=== PATIENT | male | born 1980 | race Caucasian/White ===

== ENCOUNTER 2022-02-16 13:00 | Emergency (ER) | payer SELFPAY ==
[~2022-02-16] VITALS: Ht 188 cm; Wt 113.4 kg
[2022-02-16 13:09] VITALS: BP_SYST 160
--- NOTE | 2022-02-16 13:20 | NUR ---
ER at bedside examining patient.
--- NOTE | 2022-02-16 13:20 | NUR ---
Patient to ER bed H1 to gown for evaluation. Side rails up.
[2022-02-16 13:45] VITALS: BP_SYST 158
[2022-02-16 13:59] LABS: WHITE BLOOD COUNT (AUTO) 6.2 K/uL (4.8-10.8)
[2022-02-16 14:04] LABS: HEMATOCRIT 40.8 % (36-54); HEMOGLOBIN 14.1 g/dL (14.0-18.0); MEAN CORPUSCULAR HEMOGLOBIN 29 pg (27-31); MEAN CORPUSCULAR HGB CONC 35 % (32-36); MEAN CORPUSCULAR VOLUME 85 fL (79.0-98.0); PLATELET COUNT (AUTO) 85 K/uL (130-430); RED BLOOD CELL COUNT(AUTO) 4.79 MIL/uL (4.2-6.2); RED CELL DISTRIBUTION WIDTH 13.4 % (9.0-15.0)
[2022-02-16 14:14] LABS: CALCIUM 8.7 mg/dL (8.4-11.0); CREATININE 1.05 mg/dL (0.55-1.30); POTASSIUM 3.5 mmol/L (3.5-5.1)
[2022-02-16 14:16] LABS: INR 1.1 (0.80-1.20); PROTHROMBIN TIME 10.8 SECS (9.5-12.5)
[2022-02-16 14:28] LABS: ALBUMIN 3.9 g/dL (3.4-4.8)
[2022-02-16 14:48] LABS: ATYPICAL LYMPHOCYTES % 2 % (0-0); BASOPHILS % (MANUAL) 0 % (0-2); EOSINOPHILS % (MANUAL) 3 % (0-7); LYMPHOCYTES % (MANUAL) 20 % (20-46); MONOCYTES % (MANUAL) 18 % (0-11)
--- NOTE | 2022-02-16 14:51 | NUR ---
Patient given written and verbal discharge instructions and verbalizes understanding. ER MD discussed with patient the results and treatment provided. Patient in stable condition. ID arm band removed. NO Rx given. Patient educated on pain management and to follow up with PMD. Pain Scale 0. Opportunity for questions provided and answered. Medication side effect fact sheet provided.
== END 2022-02-16 14:51 ==
LOC: SED 13:00
DX: K92.0 Hematemesis (principal)
CPT/HCPCS: 36415; 76376; 80053; 82150; 83605; 83690; 85007; 85027; 85610-TC; 85730-TC; 99284

== ENCOUNTER 2022-12-26 21:26 | Emergency (ER) | payer MEDICAID ==
[~2022-12-26] VITALS: Ht 188 cm; Wt 104.3 kg
[~2022-12-26 21:26] MED LIST: IBUP-1971 PO; LIDOINT TP; OXYC-128 PO
[2022-12-26 21:48] VITALS: BP_SYST 145
--- NOTE | 2022-12-26 21:48 | NUR ---
Triaged and placed patient back to the waiting room. No acute respiratory distress at this time. VSS. Informed patient to notify ED staff for any changes in condition or worsening of symptoms while waiting to be seen by a provider. Patient verbalized understanding.
--- NOTE | 2022-12-26 23:19 | NUR ---
Called out patient's name several times in the ER waiting room - no answer.
--- NOTE | 2022-12-26 23:36 | NUR ---
Called out patient's name several times in the ER waiting room - no answer.
--- NOTE | 2022-12-27 00:15 | NUR ---
Called out patient's name several times in the ER waiting room - no answer. Notified Dr. Ferreira that the patient LWBS.
== END 2022-12-27 00:16 | disposition left against medical advice (07) ==
LOC: SED 21:26
DX: R20.2 Paresthesia of skin (principal); Z53.21 Procedure and treatment not carried out due to patient leaving prior to being seen by health care provider
CPT/HCPCS: 99281

== ENCOUNTER 2023-01-26 17:02 | Inpatient (IN) | payer MEDICAID ==
[~2023-01-26] VITALS: Ht 188 cm; Wt 104.3 kg
[2023-01-26 17:20] VITALS: BP_SYST 148
[2023-01-26] MEDS ORDERED: KETOROLAC TROMETHAMINE 30 MG VIAL IM ONE (19:30)
[2023-01-26 20:08] LABS: BILIRUBIN,URINE NEGATIVE (NEGATIVE); BLOOD, URINE NEGATIVE (NEGATIVE); CLARITY/URINE CLEAR (CLEAR); COLOR,URINE YELLOW (YELLOW); GLUCOSE,URINE NEGATIVE (NEGATIVE); KETONES,URINE NEGATIVE (NEGATIVE); LEUKOCYTE ESTERASE ,URINE NEGATIVE (NEGATIVE); NITRITE, URINE NEGATIVE (NEGATIVE); PROTEIN URINE NEGATIVE (NEGATIVE); UROBILINOGEN,URINE 0.2 (0.2-1.0)
[2023-01-26 20:28] LABS: BASOPHILS % (AUTO) 0.5 % (0.0-2.0); EOSINOPHILS # (AUTO) 0.2 K/uL (0.0-0.4); EOSINOPHILS % (AUTO) 4.3 % (0.0-4.0); HEMATOCRIT 43.9 % (36-54); HEMOGLOBIN 14.8 g/dL (14.0-18.0); LYMPHOCYTES # (AUTO) 1.1 K/uL (1.0-5.5); LYMPHOCYTES % (AUTO) 22.7 % (20.5-51.5); MEAN CORPUSCULAR HEMOGLOBIN 30 pg (27-31); MEAN CORPUSCULAR HGB CONC 34 % (32-36); MEAN CORPUSCULAR VOLUME 88 fL (79.0-98.0); MONOCYTES # (AUTO) 0.6 K/uL (0.0-1.0); NEUTROPHILS # (AUTO) 2.8 K/uL (1.8-7.7); NEUTROPHILS % (AUTO) 59.5 % (40.0-70.0); RED CELL DISTRIBUTION WIDTH 14.8 % (9.0-15.0); WHITE BLOOD COUNT (AUTO) 4.7 K/uL (4.8-10.8)
[2023-01-26 21:34] LABS: CALCIUM 8.3 mg/dL (8.4-11.0); CREATININE 0.84 mg/dL (0.55-1.30)
[2023-01-26 21:39] LABS: ALBUMIN 3.4 g/dL (3.4-4.8); TOTAL BILIRUBIN 0.4 mg/dL (0.0-1.0)
[2023-01-26] MEDS ORDERED: HYDROmorphone 1 MG/ML INJ. CARTRIDGE IVP PRN (22:00)
[2023-01-26] MEDS ORDERED: DIPHENHYDRAMINE INJ 50 MG/ML VIAL IVP PRN (22:00)
[2023-01-26] MEDS ORDERED: ACETAMINOPHEN 325 MG TABLET PO PRN (22:00)
[2023-01-26] MEDS ORDERED: NEU300 PO (22:18)
[2023-01-26] MEDS ORDERED: KETOROLAC TROMETHAMINE 30 MG VIAL ONE (22:22)
[2023-01-26 23:09] LABS: BARBITURATE, URINE NEGATIVE (NEG <=200); BENZODIAZEPINE, URINE NEGATIVE (NEG <=150); CANNABINOID, URINE NEGATIVE (NEG <=50); COCAINE, URINE NEGATIVE (NEG <=150); METHAMPHETAMINES SCREEN,URINE POSITIVE (NEG <=500); OPIATE, URINE NEGATIVE (NEG <=100); PHENCYCLIDINE SCREEN,URINE NEGATIVE (NEG <=25); URINE AMPHETAMINE POSITIVE (NEG <=500); URINE METHADONE NEGATIVE (NEG <=200); URINE OXYCODONE SCREEN NEGATIVE (NEG <=100); URINE PROPOXYPHENE SCREEN NEGATIVE (NEG <=300)
[2023-01-26 23:12] LABS: UR TRICYCLIC ANTIDEPRESSANTS NEGATIVE (NEG <=300)
[2023-01-27 01:43] VITALS: BP_SYST 138
[2023-01-27 08:00] VITALS: BP_SYST 127
[2023-01-27] MEDS: OXYCODONE/ACETAMINOPHEN *10*mg/325 mg TABLET PO PRN ×3 (10:22→23:20)
[2023-01-27] MEDS ORDERED: LORazepam 2 MG/ML VIAL IVP ONE (11:00)
[2023-01-27 12:23] VITALS: BP_SYST 148
[2023-01-27 16:34] VITALS: BP_SYST 140
[2023-01-27 19:00] VITALS: BP_SYST 140
[2023-01-27 20:00] VITALS: BP_SYST 135
[2023-01-28 00:43] VITALS: BP_SYST 128; BP_SYST 143
[2023-01-28 07:50] VITALS: BP_SYST 140
[2023-01-28] MEDS ORDERED: NICOTINE 21 MG/24 HR PATCH.TD24 TD SCH (09:00)
[2023-01-28 11:02] VITALS: BP_SYST 140
[2023-01-28 13:22] VITALS: BP_SYST 140
[2023-01-28 13:29] VITALS: BP_SYST 140
[2023-01-28 13:31] VITALS: BP_SYST 140
== END 2023-01-28 14:30 | disposition home or self-care (01) | DRG 347 ==
LOC: SED 17:02 → SMU 22:00
PROVIDERS: ADMIT Internal Medicine; ATTEND Internal Medicine
DX: M54.42 Lumbago with sciatica, left side (principal); E66.9 Obesity, unspecified; M47.816 Spondylosis without myelopathy or radiculopathy, lumbar region; M47.817 Spondylosis without myelopathy or radiculopathy, lumbosacral region; M48.061 Spinal stenosis, lumbar region without neurogenic claudication; Z79.891 Long term (current) use of opiate analgesic; Z79.899 Other long term (current) drug therapy; Z79.1 Long term (current) use of non-steroidal anti-inflammatories (NSAID)
CPT/HCPCS: 36415; 72131; 72148; 73560-TC; 73590-TC; 76376; 80053; 80307; 81003; 85025; 85651-TC; 86592; 96372; 99285; G0482; J1885; J2060